=== PATIENT | female | born 1950 | race Two or more races ===

== ENCOUNTER 2025-05-12 17:27 | Emergency (ER) | payer BC, OTHER ==
[~2025-05-12] VITALS: Ht 162.6 cm; Wt 68.0 kg
[2025-05-12] MEDS ORDERED: EZALLOR SPRINKL10 MG PO (17:33)
[2025-05-12] MEDS ORDERED: LIDOCAINE HCL 1% 2ML VIAL IJ ONE (18:15)
[2025-05-12] MEDS ORDERED: BACTRIM DS TAB1 EACH PO (19:20)
[2025-05-12] MEDS ORDERED: DOLOGESIC 500-1 EACH PO (19:20)
== END 2025-05-12 20:05 | disposition home or self-care (01) ==
LOC: ER 17:27
DX: S81.822A Laceration with foreign body, left lower leg, initial encounter (principal); W45.8XXA Other foreign body or object entering through skin, initial encounter; Y93.89 Activity, other specified; Y92.811 Bus as the place of occurrence of the external cause; Z88.6 Allergy status to analgesic agent; Z88.1 Allergy status to other antibiotic agents; Z88.0 Allergy status to penicillin